=== PATIENT | female | born 1975 | race Caucasian/White ===

== ENCOUNTER → 2017-07-26 09:56 | Outpatient (POV) | payer SELFPAY | PROVIDERS: Visit Provider Nurse Practitioner Acute Care | DX: Z00.00 Encounter for general adult medical examination without abnormal findings (principal) ==

== ENCOUNTER → 2018-01-03 13:20 | Outpatient (POV) | payer SELFPAY | PROVIDERS: Visit Provider Nurse Practitioner Acute Care | DX: Z00.00 Encounter for general adult medical examination without abnormal findings (principal) ==